=== PATIENT | female | born 1995 | race Caucasian/White ===

== ENCOUNTER 2017-11-04 12:03 | Emergency (ER) | payer OTHER ==
--- NOTE | 2017-11-04 12:50 | EDM.PDOC ---
ED HPI GENERAL MEDICAL PROBLEM - General Chief Complaint: Abdominal Pain Stated Complaint: ABD CRAMPING Time Seen by Provider: 11/04/17 12:25 Source of Information: Reports: Patient History Limitations: Reports: No Limitations - History of Present Illness INITIAL COMMENTS - FREE TEXT/NARRATIVE: Presents reporting low pelvic pain for 24 hours. Last menstrual period was 2016. She states that her periods are always regular. She has been sexually active and not on control. When asked if she had done a test she told the nurse "no". The nurse suggested that she could buy one for under a [employer] store. When I interviewed the patient, I asked her if she had done a test. She stated that she had but it was "a cheap one I got at the [employer] store" and the line was "very faint". No vaginal bleeding, itch or discharge. She denies burning, urgency or frequency of urination but adds that she feels a "hard release" when she voids. - Related Data Allergies Allergy/AdvReac Type Severity Reaction Status Date / Time No Known Allergies Allergy Verified 11/04/17 12:49 Home Meds: Home Meds Nitrofurantoin Monohyd/M-Cryst [Macrobid 100 mg Capsule] 100 mg PO BID #14 capsule 11/04/17 [Rx] ED ROS GENERAL - Review of Systems Review Of Systems: ROS reveals no pertinent complaints other than HPI. ED EXAM, RENAL/ - Physical Exam Exam: See Below Exam Limited By: No Limitations General Appearance: Alert, No Apparent Distress Ears: Normal External Exam Nose: Normal Inspection Throat/Mouth: Normal Inspection Head: Atraumatic, Normocephalic Neck: Normal Inspection Respiratory/Chest: No Respiratory Distress, Lungs Clear, Normal Breath Sounds Cardiovascular: Normal Peripheral Pulses, Regular Rate, Rhythm, No Edema GI/Abdominal: Soft, No Distention, Other (mild tenderness midline low) Back Exam: Normal Inspection Extremities: Normal Inspection Neurological: Alert, Oriented Psychiatric: Normal Affect, Normal Mood Skin Exam: Warm, Dry, Intact, Normal Color, No Rash Lymphatic: No Adenopathy Course - Orders/Labs/Meds Orders: Active Orders 24 hr Category Date Time Status HCG QUALITATIVE,URINE [URCHEM] Stat Lab 11/04/17 12:34 Uncollected UA W/MICROSCOPIC [URIN] Stat Lab 11/04/17 12:34 Uncollected Departure - Departure Time of Disposition: 13:21 Disposition: Home, Self-Care 01 Condition: Good Clinical Impression: UTI (urinary tract infection) Qualifiers: Urinary tract infection type: site unspecified Hematuria presence: without hematuria Qualified Code(s): N39.0 - Urinary tract infection, site not specified - Discharge Information Referrals: PCP,None [Primary Care Provider] - Additional Instructions: 1. Start a pre- vitamin immediately 2. Take your antibiotic 3. Drink plenty of fluids. 4. Start care in 8-10 weeks unless problems arise. - My Orders Last 24 Hours: My Active Orders 11/04/17 12:34 HCG QUALITATIVE,URINE [URCHEM] Stat UA W/MICROSCOPIC [URIN] Stat - Assessment/Plan Last 24 Hours: My Active Orders 11/04/17 12:34 HCG QUALITATIVE,URINE [URCHEM] Stat UA W/MICROSCOPIC [URIN] Stat
== END 2017-11-04 13:38 | disposition home or self-care (01) ==
LOC: MW.ED 12:03
DX: N39.0 Urinary tract infection, site not specified (principal)
CPT/HCPCS: 81001; 81025; 99282; 99284